=== PATIENT | male | born 1990 | race American Indian/Alaskan Native ===

== ENCOUNTER 2017-08-20 12:11 | Emergency (ER) | payer OTHER ==
[2017-08-20 12:18] VITALS: BP 120/73
[2017-08-20] MEDS ORDERED: MOTRIN PO ONE (12:20)
[2017-08-20] MEDS ORDERED: CLEOCIN ONE (12:21)
[2017-08-20] MEDS ORDERED: CLEOCIN IM ONE (12:24)
--- NOTE | 2017-08-20 12:28 | Emergency Department Report ---
<SHAWNA ELLINGTON - Last Filed: 08/20/17 12:24> ED ENT HPI - General Chief complaint: Dental/Oral Stated complaint: PAIN/ABCESS Time Seen by Provider: 08/20/17 12:19 Source: patient Mode of arrival: Ambulatory Limitations: No Limitations - History of Present Illness Initial comments: This is a 26-year-old male nontoxic, well nourished in appearance, no acute signs of distress presents to the ED with c/o of left lower toothache 1 week. Patient denies following up with a dentist. Patient stated that pain radiates from his job to his left side of head. Patient otherwise denies any head trauma. Patient describes toothache as aching level of 8 out of 10. Patient stated has slight facial swelling of left lower jaw. Patient denies any numbness, tingling, fever, chills, headache, stiff neck, abdominal pain, chest pain, shortness of breath. Patient denies any drug allergies or significant past medical history. MD complaint: tooth pain -: week(s) (1) Location: tooth # 1 - pain Severity: mild Severity scale (0 -10): 8 Quality: aching Consistency: constant Improves with: none Worsens with: none Associated Symptoms: gum swelling, toothache. denies: fever, cough, pain with swallowing, sore throat, tinnitus, hearing loss, discharge from ear, rhinorrhea - Related Data Previous Rx's Medication Instructions Recorded Last Taken Type Cyclobenzaprine [Flexeril 10mg] 10 mg PO Q8H PRN #21 tablet 11/22/13 Unknown Rx Ibuprofen [Motrin 800 MG tab] 800 mg PO TID PRN #21 tablet 02/17/14 Unknown Rx HYDROcodone/APAP 5-325 [[place] 1 each PO Q6HR PRN #16 tablet 03/19/14 Unknown Rx 5-325 mg TAB] Penicillin Vk [Veetids TAB] 500 mg PO QID #40 tablet 03/19/14 Unknown Rx Acetaminophen/Codeine [Tylenol 1 tab PO Q6H PRN #14 tab 08/20/17 Unknown Rx /Codeine # 3 tab] Chlorhexidine Mouthwash [Peridex] 15 ml MM BID #1 bottle 08/20/17 Unknown Rx Clindamycin [Clindamycin CAP] 300 mg PO Q8H #21 cap 08/20/17 Unknown Rx Ibuprofen [Motrin] 600 mg PO Q8H PRN #30 tablet 08/20/17 Unknown Rx Allergies Allergy/AdvReac Type Severity Reaction Status Date / Time No Known Allergies Allergy Verified 08/20/17 12:17 ED Dental HPI - General Chief complaint: Dental/Oral Stated complaint: PAIN/ABCESS Time Seen by Provider: 08/20/17 12:19 Source: patient Mode of arrival: Ambulatory Limitations: No Limitations - Related Data Previous Rx's Medication Instructions Recorded Last Taken Type Cyclobenzaprine [Flexeril 10mg] 10 mg PO Q8H PRN #21 tablet 11/22/13 Unknown Rx Ibuprofen [Motrin 800 MG tab] 800 mg PO TID PRN #21 tablet 02/17/14 Unknown Rx HYDROcodone/APAP 5-325 [[place] 1 each PO Q6HR PRN #16 tablet 03/19/14 Unknown Rx 5-325 mg TAB] Penicillin Vk [Veetids TAB] 500 mg PO QID #40 tablet 03/19/14 Unknown Rx Acetaminophen/Codeine [Tylenol 1 tab PO Q6H PRN #14 tab 08/20/17 Unknown Rx /Codeine # 3 tab] Chlorhexidine Mouthwash [Peridex] 15 ml MM BID #1 bottle 08/20/17 Unknown Rx Clindamycin [Clindamycin CAP] 300 mg PO Q8H #21 cap 08/20/17 Unknown Rx Ibuprofen [Motrin] 600 mg PO Q8H PRN #30 tablet 08/20/17 Unknown Rx Allergies Allergy/AdvReac Type Severity Reaction Status Date / Time No Known Allergies Allergy Verified 08/20/17 12:17 ED Review of Systems ROS: Stated complaint: PAIN/ABCESS Other details as noted in HPI Constitutional: denies: chills, fever Eyes: denies: eye pain, eye discharge, vision change ENT: dental pain. denies: ear pain, throat pain Respiratory: denies: cough, shortness of breath, wheezing Cardiovascular: denies: chest pain, palpitations Endocrine: no symptoms reported Gastrointestinal: denies: abdominal pain, nausea, diarrhea Genitourinary: denies: urgency, dysuria Musculoskeletal: denies: back pain, joint swelling, arthralgia Skin: denies: rash, lesions Neurological: denies: headache, weakness, paresthesias Psychiatric: denies: anxiety, depression Hematological/Lymphatic: denies: easy bleeding, easy bruising ED Past Medical Hx - Past Medical History Previous Medical History?: No - Surgical History Hx Appendectomy: Yes - Social History Smoking Status: Current Every Day Smoker Substance Use Type: None - Medications Home Medications: Home Medications Medication Instructions Recorded Confirmed Last Taken Type Cyclobenzaprine [Flexeril 10mg] 10 mg PO Q8H PRN #21 tablet 11/22/13 Unknown Rx Ibuprofen [Motrin 800 MG tab] 800 mg PO TID PRN #21 tablet 02/17/14 Unknown Rx HYDROcodone/APAP 5-325 [[place] 1 each PO Q6HR PRN #16 tablet 03/19/14 Unknown Rx 5-325 mg TAB] Penicillin Vk [Veetids TAB] 500 mg PO QID #40 tablet 03/19/14 Unknown Rx Acetaminophen/Codeine [Tylenol 1 tab PO Q6H PRN #14 tab 08/20/17 Unknown Rx /Codeine # 3 tab] Chlorhexidine Mouthwash [Peridex] 15 ml MM BID #1 bottle 08/20/17 Unknown Rx Clindamycin [Clindamycin CAP] 300 mg PO Q8H #21 cap 08/20/17 Unknown Rx Ibuprofen [Motrin] 600 mg PO Q8H PRN #30 tablet 08/20/17 Unknown Rx ED Physical Exam - General Limitations: No Limitations General appearance: alert, in no apparent distress - Head Head exam: Present: atraumatic, normocephalic - Eye Eye exam: Present: normal appearance Pupils: Present: normal accommodation - ENT ENT exam: Present: mucous membranes moist, TM's normal bilaterally, normal external ear exam - Expanded ENT Exam Expanded Ear exam: Present: normal external inspection Mouth exam: Present: normal external inspection, tongue normal. Absent: drooling, trismus, muffled voice, tongue elevation, laceration Teeth exam: Present: dental caries, fractured tooth #, dental tenderness #, gingival enlargement, other (Slight facial swelling with no induration or flutance noted.) Throat exam: Positive: normal inspection, other (Uvula midline. ). Negative: tonsillar erythema, tonsillomegaly, tonsillar exudate, R peritonsillar mass, L peritonsillar mass - Neck Neck exam: Present: normal inspection, full ROM. Absent: tenderness, meningismus, lymphadenopathy - Respiratory Respiratory exam: Present: normal lung sounds bilaterally. Absent: respiratory distress, wheezes, rales, rhonchi, stridor, chest wall tenderness, accessory muscle use, decreased breath sounds, prolonged expiratory - Cardiovascular Cardiovascular Exam: Present: regular rate, normal rhythm, normal heart sounds. Absent: bradycardia, tachycardia, irregular rhythm, systolic murmur, diastolic murmur, rubs, gallop - GI/Abdominal GI/Abdominal exam: Present: soft, normal bowel sounds - Rectal Rectal exam: Present: deferred - Extremities Exam Extremities exam: Present: normal inspection, full ROM, normal capillary refill - Back Exam Back exam: Present: normal inspection, full ROM - Neurological Exam Neurological exam: Present: alert, oriented X3, normal gait - Psychiatric Psychiatric exam: Present: normal affect, normal mood - Skin Skin exam: Present: warm, dry, intact, normal color. Absent: rash ED Course Vital Signs 08/20/17 08/20/17 12:14 12:30 Temperature 98.8 F Pulse Rate 84 Respiratory 18 18 Rate Blood Pressure 120/73 O2 Sat by Pulse 98 Oximetry - Reevaluation(s) Reevaluation #1: 08/20/17 12:26 Patient is speaking in full sentences with no signs of distress noted. ED Medical Decision Making - Medical Decision Making This is a 26-year-old male that presents with gingivitis and dental caries. Patient is stable and was examined by me. There is slight swelling to the left lower mandible. I used 18-gauge hypo-with 10 mL syringe and try to aspirate in the right gingival area to make sure this was an abscess and no prominent drainage has been noted. I did give patient clindamycin 600 mg IM in the ED and patient is discharged with clindamycin. He had strict instructions to follow-up with oral maxillary surgeon in 24 hours or if symptoms would worsen to return to emergency room as was possible. Patient is discharged with Tylenol with Codeine, Peridex and Clinda. Patient was instructed not to operate any machinery when taking Tylenol with Codeine due to drowsiness. At time of discharge, the patient does not seem toxic or ill in appearance. No acute signs of distress noted. Patient agrees to discharge treatment plan of care. No further questions noted by the patient. Critical care attestation.: If time is entered above; I have spent that time in minutes in the direct care of this critically ill patient, excluding procedure time. ED Disposition Disposition: DC-01 TO HOME OR SELFCARE Is pt being admited?: No Does the pt Need Aspirin: No Condition: Stable Instructions: Acetaminophen/Codeine (By mouth), Dental Caries (ED), Gingivitis (ED) Additional Instructions: Follow-up with a maxillary surgeon in 24 hours in 3-5 days or if symptoms worsen and continue return to emergency room as soon as possible. [facility] [employer] [facility] [employer] Address: [address], [place] [address] Hours: Friday (20 of August) 8AM1PM, 25PM Hours might differ 8AM1PM, 25PM Friday 7AM2PM Friday Closed Friday Closed Friday 8AM1PM, 25PM Friday 8AM1PM, 25PM Prescriptions: Acetaminophen/Codeine [Tylenol /Codeine # 3 tab] 1 tab PO Q6H PRN #14 tab PRN Reason: Pain , Severe (7-10) Chlorhexidine Mouthwash [Peridex] 15 ml MM BID #1 bottle Clindamycin [Clindamycin CAP] 300 mg PO Q8H #21 cap Ibuprofen [Motrin] 600 mg PO Q8H PRN #30 tablet PRN Reason: Pain Referrals: PRIMARY CARE, [Primary Care Provider] - 3-5 Days SILVESTRE LOUISE MD [Staff Physician] - 3-5 Days [facility] [Outside] - 3-5 Days Forms: Work/School Release Form(ED) <KRISTIE GUSMAN - Last Filed: 08/20/17 17:03> ED Medical Decision Making - Medical Decision Making I did not see this patient. I was available for consultation the entire time the patient was in the department. I have reviewed the DIRECTOR BIOLOGY/PAs note and agree with the plan.
== END 2017-08-20 12:59 | disposition home or self-care (01) ==
LOC: ED 12:11
DX: K02.9 Dental caries, unspecified (principal); K05.00 Acute gingivitis, plaque induced; F17.200 Nicotine dependence, unspecified, uncomplicated; Z90.49 Acquired absence of other specified parts of digestive tract
CPT/HCPCS: 96372; 99282

== ENCOUNTER 2019-01-24 08:40 | Emergency (ER) | payer OTHER ==
--- NOTE | 2019-01-24 08:52 | Event Note ---
ED Screening Note Date of service: 01/24/19 Time: 08:47 ED Screening Note: 28 y/o male comes in for testicle pain and swelling . No trauma or injury. Has some nausea no vomiting. This initial assessment/diagnostic orders/clinical plan/treatment(s) is/are subject to change based on patients health status, clinical progression and re- assessment by fellow clinical providers in the ED. Further treatment and workup at subsequent clinical providers discretion. Patient/guardian urged not to elope from the ED as their condition may be serious if not clinically assessed and managed. Initial orders include:
[2019-01-24] MEDS ORDERED: VANCOMYCIN/NS 1 GM/250 ML 1 GM/250 ML BAG IV ONE (09:59)
[2019-01-24] MEDS ORDERED: MORPHINE 4 MG/1 ML INJ IV ONE (10:04)
--- NOTE | 2019-01-24 10:07 | Emergency Department Report ---
HPI - General Chief Complaint: Urogenital-Male Time Seen by Provider: 01/24/19 08:47 - HPI HPI: 28-year-old male presents to the emergency department with a complaint of some pain and possible abscess to the scrotum that has developed over the past few days. The patient says that he was scratching his scrotum and thinks that he could've introduced and infection. He denies any dysuria, penile discharge, fever. No past medical history. He has not taken anything for her symptoms prior to arrival today. ED Past Medical Hx - Past Medical History Previous Medical History?: No - Surgical History Past Surgical History?: Yes Hx Appendectomy: Yes - Social History Smoking Status: Current Every Day Smoker Substance Use Type: Alcohol, Marijuana - Medications Home Medications: Home Medications Medication Instructions Recorded Confirmed Last Taken Type Cyclobenzaprine [Flexeril 10mg] 10 mg PO Q8H PRN #21 tablet 11/22/13 Unknown Rx Ibuprofen [Motrin 800 MG tab] 800 mg PO TID PRN #21 tablet 02/17/14 Unknown Rx HYDROcodone/APAP 5-325 [[place] 1 each PO Q6HR PRN #16 tablet 03/19/14 Unknown Rx 5-325 mg TAB] Penicillin Vk [Veetids TAB] 500 mg PO QID #40 tablet 03/19/14 Unknown Rx Acetaminophen/Codeine [Tylenol 1 tab PO Q6H PRN #14 tab 08/20/17 Unknown Rx /Codeine # 3 tab] Chlorhexidine Mouthwash [Peridex] 15 ml MM BID #1 bottle 08/20/17 Unknown Rx Amoxicillin [Amoxicillin TAB] 875 mg PO BID #10 tablet 02/16/18 Unknown Rx Ibuprofen [Motrin 600 MG tab] 600 mg PO Q8H PRN #30 tablet 02/16/18 Unknown Rx Clindamycin [Clindamycin CAP] 300 mg PO Q8H #30 cap 01/24/19 Unknown Rx HYDROcodone/APAP 5-325 [[place] 1 each PO Q6HR PRN #10 tablet 01/24/19 Unknown Rx 5/325] ED Review of Systems ROS: Stated complaint: DISCOMFORT IN GROIN Other details as noted in HPI Comment: All other systems reviewed and negative Constitutional: denies: chills, fever Gastrointestinal: denies: abdominal pain, vomiting Genitourinary: testicular pain. denies: dysuria, discharge Musculoskeletal: denies: back pain, arthralgia Skin: lesions. denies: rash Physical Exam - Physical Exam Vital Signs: Vital Signs 01/24/19 08:45 Temperature 98.9 F Pulse Rate 95 H Respiratory 20 Rate Blood Pressure 145/78 O2 Sat by Pulse 100 Oximetry Physical Exam: GENERAL: The patient is well-developed well-nourished. HENT: Normocephalic. Atraumatic. EYES: Extraocular motions are intact. NECK: Supple. Trachea is midline. CHEST/LUNGS: Clear to auscultation. There is no respiratory distress noted. HEART/CARDIOVASCULAR: Regular. There is no tachycardia. There is no murmur. ABDOMEN: Abdomen is soft, nontender. Patient has normal bowel sounds. There is no abdominal distention. SKIN: Patient has a midline inferior scrotal wall abscess that is tender to palpation, fluctuant, with some mild surrounding erythema. NEURO: The patient is awake, alert, and oriented. The patient is cooperative. Normal speech. MUSCULOSKELETAL: There is no tenderness or deformity. There is no limitation range of motion. There is no evidence of acute injury. : Patient has a midline inferior scrotal wall abscess that is tender to palpation, fluctuant, with some mild surrounding erythema. ED Course Vital Signs 01/24/19 08:45 Temperature 98.9 F Pulse Rate 95 H Respiratory 20 Rate Blood Pressure 145/78 O2 Sat by Pulse 100 Oximetry - Reevaluation(s) Reevaluation #1: The patient has a scrotal wall abscess, confirmed on ultrasound, that is about 2.6 cm that is adjacent to the left testicle. There is some mild erythema. The patient's vital signs are stable including being afebrile. He does have a leuko cytosis of 16,000. It is my recommendation to the patient to perform a incision and drainage. I explained the procedure in great detail with the patient is refusing to have this done. He understands that if an I&D is not performed that there is risk that this could worsen, have increased pain, increased abscess, development a systemic infection or sepsis, that this could ultimately affect his testicles and reproductive organs, or even lead to . However, the patient will be given an IV with IV fluid resuscitation, pain medication and IV antibiotics. The patient will sign out AGAINST MEDICAL ADVICE but he will be sent home with antibiotics and a referral for urology. He also understands that he can, and should, return to the emergency department with any worsening of his symptoms or with any acute distress. 01/24/19 11:13 ED Medical Decision Making - Lab Data Result diagrams: 01/24/19 10:42 01/24/19 10:42 - Radiology Data Radiology results: report reviewed Scrotal Ultrasound HISTORY: testicle pain and swelling. TECHNIQUE: Grayscale and color Doppler imaging performed. COMPARISON: None FINDINGS: Both testicles are normal in size with preserved blood flow. Right testicle measures 3.7 x 1.9 x 2.9 cm and the left testicle measures 3.4 x 2.3 x 2.2 cm. Punctate microcalcifications are present in both testicles. Each epididymis is normal in size. In the soft tissues of the scrotal wall adjacent to the left testicle, there is a complex mixed echogenicity structure measuring 2.6 cm in maximal dimension with surrounding hyperemia. IMPRESSION: 1. Complex cystic structure in the scrotal wall adjacent to the testicles worrisome for an abscess. 2. Microcalcifications within the testicles can be associated with increased cancer risk. Recommend annual self physical exam and consultation with urology as if needed. - Medical Decision Making This patient presents with the complaint of some pain and suspected infection to the scrotum over the past few days. On examination the patient does appear to have a scrotal wall abscess with some mild surrounding erythema. An ultrasound was done that shows a complex cystic structure in the scrotal wall that is 2.6 cm in its maximal dimension that is consistent with a scrotal wall abscess. The abscess does appear superficial, fluctuant, and I gave the patient my recommendation to perform an I&D. I went over the procedure in great detail but the patient is refusing to have the incision and drainage done. As previously stated, I spent a while speaking with the patient regarding my concerns for leaving the emergency department without doing the I and D. The patient may end up doing well and having resolution of his abscess and infection with just anti biotics and outpatient follow-up. However, there is also concern for worsening or spreading of this infection, sepsis, dysfunction of his genitals or reproductive organs, increased pain, or even . The patient is awake, alert, oriented and appears to have a normal decision making capacity. Since he understands the risks involved of not having the incision and drainage completed, he will be allowed to sign out AGAINST MEDICAL ADVICE. However, prior to leaving, the patient was given IV antibiotics and the patient was given prescriptions for oral antibiotics and a referral for urology. On top of all this, the patient also was instructed and understands that he should return immediately if he changes his mind about the incision and drainage, oriented any signs or symptoms of worsening infection, or with any acute distress. - Differential Diagnosis scrotal wall cellulitis, abscess, Aria's gangrene Critical Care Time: No Critical care attestation.: If time is entered above; I have spent that time in minutes in the direct care of this critically ill patient, excluding procedure time. ED Disposition Clinical Impression: Scrotal abscess Disposition: LEFT AGAINST MED ADVICE Is pt being admited?: No Condition: Stable Instructions: Abscess (ED) Additional Instructions: Please follow-up with a primary care physician in the next few days. Please follow-up with a urologist as soon as possible and I am giving you a referral for a local urologist, Dr. Noble. Take the antibiotics as prescribed. Return to the emergency department immediately if you change your mind about incision and drainage, with any worsening of your abscess including increased pain, increased size, increased surrounding redness, development of fever, or with any acute distress. You have been prescribed a medication that is sedating and therefore should not be taken prior to driving, working, and responsible for children and in no way should be mixed with alcohol of any quantity. Prescriptions: Clindamycin [Clindamycin CAP] 300 mg PO Q8H #30 cap HYDROcodone/APAP 5-325 [[place] 5/325] 1 each PO Q6HR PRN #10 tablet PRN Reason: Pain Referrals: PRIMARY CAREMD [Primary Care Provider] - EVETTE ROBBIE NOBLE MD [Staff Physician] - EVETTE Forms: AMA Form Time of Disposition: 11:50
[2019-01-24 10:26] LABS: Bilirubin,Urine NEG (Negative); Blood,Urine NEG (Negative); Color,Urine Yellow (Yellow); Mucus,Urine FEW /HPF; Protein,Urine <15 mg/dL mg/dL (Negative)
[2019-01-24] MEDS ORDERED: VANCOMYCIN 1,250 MG in SODIUM CHLORIDE 0.9% 250ML 250 ML IV ONE (11:00)
--- NOTE | 2019-01-24 11:01 | Ultrasound Report ---
Scrotal Ultrasound HISTORY: testicle pain and swelling. TECHNIQUE: Grayscale and color Doppler imaging performed. COMPARISON: None FINDINGS: Both testicles are normal in size with preserved blood flow. Right testicle measures 3.7 x 1.9 x 2.9 cm and the left testicle measures 3.4 x 2.3 x 2.2 cm. Punctate microcalcifications are pres ent in both testicles. Each epididymis is normal in size. In the soft tissues of the scrotal wall adjacent to the left testicle, there is a complex mixed echog enicity structure measuring 2.6 cm in maximal dimension with surrounding hyperemia. IMPRESSION: 1. Complex cystic structure in the scrotal wall adjacent to the testicles worrisome for an abscess. 2. Microcalcifications within the testicles can be associated with increased cancer risk. Recommend a nnual self physical exam and consultation with urology as if needed. Signer Name: Jj Lopez MD Signed: 01/24/2019 10:56 AM Workstation Name: [id number]
[2019-01-24 11:04] LABS: Basophils # (Auto) 0.1 K/mm3 (0.0-0.1); Basophils % (Auto) 0.3 % (0.0-1.8); Eosinophils # (Auto) 0.1 K/mm3 (0.0-0.4); Eosinophils % (Auto) 0.7 % (0.0-4.3); Hematocrit 39.6 % (35.5-45.6); Hemoglobin 13.1 gm/dl (11.8-15.2); Lymphocytes # (Auto) 1.4 K/mm3 (1.2-5.4); Lymphocytes % (Auto) 8.4 % (13.4-35.0); Mean Corpuscular HGB Conc 33 % (32-34); Mean Corpuscular Volume 88 fl (84-94); Monocytes # (Auto) 1.1 K/mm3 (0.0-0.8); Monocytes % (Auto) 6.8 % (0.0-7.3); Platelet Count 293 K/mm3 (140-440); Red Blood Count 4.51 M/mm3 (3.65-5.03); Red Cell Distribution Width 14.2 % (13.2-15.2)
[2019-01-24 11:14] LABS: BUN/Creatinine Ratio 14; Blood Urea Nitrogen 10 mg/dL (9-20); Calcium 9.3 mg/dL (8.4-10.2); Hemolysis Index 30
[2019-01-24 13:47] VITALS: BP 120/68
== END 2019-01-24 13:48 | disposition left against medical advice (07) ==
LOC: ED 08:40
DX: N49.2 Inflammatory disorders of scrotum (principal); F17.200 Nicotine dependence, unspecified, uncomplicated; F10.10 Alcohol abuse, uncomplicated; F12.10 Cannabis abuse, uncomplicated; Z79.899 Other long term (current) drug therapy; Z90.49 Acquired absence of other specified parts of digestive tract
CPT/HCPCS: 36415; 80048; 81001; 85025; 93975; 96365; 96366; 96375; 99284; J2270; J3370; J7050

== ENCOUNTER 2020-01-10 16:16 | Emergency (ER) | payer SELFPAY ==
--- NOTE | 2020-01-10 16:48 | Emergency Department Report ---
- General Chief Complaint: Wound/Laceration Stated Complaint: LT ARM SWOLLEN Time Seen by Provider: 01/10/20 16:42 Source: patient Mode of arrival: Ambulatory Limitations: No Limitations - History of Present Illness Initial Comments: This pleasant 29-year-old male presents the emergency department chief complaint of a draining wound to the posterior proximal left lower arm. Patient reports a bug bit him yesterday and he has been having some increased swelling look like a pimple initially then started to drain. He denies any associated fever, chills or night sweats, headache, dizziness, or vision, nausea, vomiting, diarrhea, chest pain, shortness of breath or any other associated symptoms. - Related Data Previous Rx's Medication Instructions Recorded Last Taken Type Cyclobenzaprine [Flexeril 10mg] 10 mg PO Q8H PRN #21 tablet 11/22/13 Unknown Rx Ibuprofen [Motrin 800 MG tab] 800 mg PO TID PRN #21 tablet 02/17/14 Unknown Rx HYDROcodone/APAP 5-325 [[place] 1 each PO Q6HR PRN #16 tablet 03/19/14 Unknown Rx 5-325 mg TAB] Penicillin Vk [Veetids TAB] 500 mg PO QID #40 tablet 03/19/14 Unknown Rx Acetaminophen/Codeine [Tylenol 1 tab PO Q6H PRN #14 tab 08/20/17 Unknown Rx /Codeine # 3 tab] Chlorhexidine Mouthwash [Peridex] 15 ml MM BID #1 bottle 08/20/17 Unknown Rx Amoxicillin [Amoxicillin TAB] 875 mg PO BID #10 tablet 02/16/18 Unknown Rx Ibuprofen [Motrin 600 MG tab] 600 mg PO Q8H PRN #30 tablet 02/16/18 Unknown Rx Clindamycin [Clindamycin CAP] 300 mg PO Q8H #30 cap 01/24/19 Unknown Rx HYDROcodone/APAP 5-325 [[place] 1 each PO Q6HR PRN #10 tablet 01/24/19 Unknown Rx 5/325] Naproxen [Naprosyn] 500 mg PO BID #20 tablet 01/10/20 Unknown Rx Sulfamethoxazole/Trimethoprim 1 each PO BID #20 tablet 01/10/20 Unknown Rx [Bactrim DS TAB] cephALEXin [Keflex] 500 mg PO Q6HR #40 capsule 01/10/20 Unknown Rx Allergies Allergy/AdvReac Type Severity Reaction Status Date / Time No Known Allergies Allergy Verified 08/20/17 12:17 ED Review of Systems ROS: Stated complaint: LT ARM SWOLLEN Other details as noted in HPI Comment: All other systems reviewed and negative Constitutional: denies: chills, fever Eyes: denies: eye pain, eye discharge, vision change ENT: denies: ear pain, throat pain Respiratory: denies: cough, shortness of breath, wheezing Cardiovascular: denies: chest pain, palpitations Endocrine: no symptoms reported Gastrointestinal: denies: abdominal pain, nausea, diarrhea Genitourinary: denies: urgency, dysuria Musculoskeletal: denies: back pain, joint swelling, arthralgia Skin: as per HPI, lesions. denies: rash Neurological: denies: headache, weakness, paresthesias Psychiatric: denies: anxiety, depression Hematological/Lymphatic: denies: easy bleeding, easy bruising ED Past Medical Hx - Past Medical History Previous Medical History?: No - Surgical History Past Surgical History?: Yes Hx Appendectomy: Yes - Social History Smoking Status: Unknown if ever smoked Substance Use Type: None - Medications Home Medications: Home Medications Medication Instructions Recorded Confirmed Last Taken Type Cyclobenzaprine [Flexeril 10mg] 10 mg PO Q8H PRN #21 tablet 11/22/13 Unknown Rx Ibuprofen [Motrin 800 MG tab] 800 mg PO TID PRN #21 tablet 02/17/14 Unknown Rx HYDROcodone/APAP 5-325 [[place] 1 each PO Q6HR PRN #16 tablet 03/19/14 Unknown Rx 5-325 mg TAB] Penicillin Vk [Veetids TAB] 500 mg PO QID #40 tablet 03/19/14 Unknown Rx Acetaminophen/Codeine [Tylenol 1 tab PO Q6H PRN #14 tab 08/20/17 Unknown Rx /Codeine # 3 tab] Chlorhexidine Mouthwash [Peridex] 15 ml MM BID #1 bottle 08/20/17 Unknown Rx Amoxicillin [Amoxicillin TAB] 875 mg PO BID #10 tablet 02/16/18 Unknown Rx Ibuprofen [Motrin 600 MG tab] 600 mg PO Q8H PRN #30 tablet 02/16/18 Unknown Rx Clindamycin [Clindamycin CAP] 300 mg PO Q8H #30 cap 01/24/19 Unknown Rx HYDROcodone/APAP 5-325 [[place] 1 each PO Q6HR PRN #10 tablet 01/24/19 Unknown Rx 5/325] Naproxen [Naprosyn] 500 mg PO BID #20 tablet 01/10/20 Unknown Rx Sulfamethoxazole/Trimethoprim 1 each PO BID #20 tablet 01/10/20 Unknown Rx [Bactrim DS TAB] cephALEXin [Keflex] 500 mg PO Q6HR #40 capsule 01/10/20 Unknown Rx ED Physical Exam - General Limitations: No Limitations General appearance: alert, in no apparent distress - Head Head exam: Present: atraumatic, normocephalic - Eye Eye exam: Present: normal appearance, PERRL, EOMI Pupils: Present: normal accommodation - ENT ENT exam: Present: normal exam, normal orophraynx, mucous membranes moist - Neck Neck exam: Present: normal inspection, full ROM. Absent: tenderness, meningism us - Respiratory Respiratory exam: Present: normal lung sounds bilaterally. Absent: respiratory distress, wheezes, rales, rhonchi, stridor - Cardiovascular Cardiovascular Exam: Present: regular rate, normal rhythm, normal heart sounds. Absent: systolic murmur, diastolic murmur, rubs, gallop - GI/Abdominal GI/Abdominal exam: Present: soft, normal bowel sounds. Absent: distended, tenderness, guarding, rebound, rigid - Rectal Rectal exam: Present: deferred - Extremities Exam Extremities exam: Present: normal inspection, full ROM, tenderness, other (1cm area of ulcreation to the left proximal, posterior lower arm. no induration or crepitus ) - Back Exam Back exam: Present: normal inspection - Neurological Exam Neurological exam: Present: alert, oriented X3 - Psychiatric Psychiatric exam: Present: normal affect, normal mood - Skin Skin exam: Present: warm, dry, intact, normal color. Absent: rash ED Medical Decision Making - Medical Decision Making Patient had a draining abscess to his left elbow area. Minimal surrounding erythema. Suspect possible insect bite versus furuncle. Patient will be treated with warm compress, anti-inflammatories and antibiotics and recommend outpatient primary care follow-up for wound recheck in 2 3 days. Patient instructed to return the emerge part with any change or worsening symptoms. Verbalized understand the diagnosis, treatment plan and follow-up instructions all his questions were answered. - Differential Diagnosis Abscess, insect bite, cellulitis Critical care attestation.: If time is entered above; I have spent that time in minutes in the direct care of this critically ill patient, excluding procedure time. ED Disposition Clinical Impression: Abscess Disposition: DC-01 TO HOME OR SELFCARE Is pt being admited?: No Condition: Stable Instructions: Skin Abscess Prescriptions: Sulfamethoxazole/Trimethoprim [Bactrim DS TAB] 1 each PO BID #20 tablet cephALEXin [Keflex] 500 mg PO Q6HR #40 capsule Naproxen [Naprosyn] 500 mg PO BID #20 tablet Referrals: ANJU AREVALO MD [Staff Physician] - 3-5 Days [facility] [Provider Group] - 3-5 Days Time of Disposition: 16:48
== END 2020-01-10 16:57 | disposition home or self-care (01) ==
LOC: ED 16:16
DX: L02.91 Cutaneous abscess, unspecified (principal); Z79.899 Other long term (current) drug therapy; Z90.49 Acquired absence of other specified parts of digestive tract
CPT/HCPCS: 99282

== ENCOUNTER → 2020-10-25 | Emergency (ER) | payer SELFPAY ==
[~2020-10-25] MED LIST: dexAMETHasone 4 MG/ML VIAL IM ONE
[2020-10-25 06:54] VITALS: BP 131/76
--- NOTE | 2020-10-25 07:46 | Emergency Department Report ---
Minor Respiratory - HPI Chief Complaint: Sore Throat Stated Complaint: SWOLLEN THROAT Time Seen by Provider: 10/25/20 07:43 ED Review of Systems ROS: Stated complaint: SWOLLEN THROAT Other details as noted in HPI ED Past Medical Hx - Surgical History Hx Appendectomy: Yes - Social History Smoking Status: Unknown if ever smoked Substance Use Type: None - Medications Home Medications: Home Medications Medication Instructions Recorded Confirmed Last Taken Type Cyclobenzaprine [Flexeril 10mg] 10 mg PO Q8H PRN #21 tablet 11/22/13 Unknown Rx Ibuprofen [Motrin 800 MG tab] 800 mg PO TID PRN #21 tablet 02/17/14 Unknown Rx HYDROcodone/APAP 5-325 [[place] 1 each PO Q6HR PRN #16 tablet 03/19/14 Unknown Rx 5-325 mg TAB] Penicillin Vk [Veetids TAB] 500 mg PO QID #40 tablet 03/19/14 Unknown Rx Acetaminophen/Codeine [Tylenol 1 tab PO Q6H PRN #14 tab 08/20/17 Unknown Rx /Codeine # 3 tab] Chlorhexidine Mouthwash [Peridex] 15 ml MM BID #1 bottle 08/20/17 Unknown Rx Amoxicillin [Amoxicillin TAB] 875 mg PO BID #10 tablet 02/16/18 Unknown Rx Ibuprofen [Motrin 600 MG tab] 600 mg PO Q8H PRN #30 tablet 02/16/18 Unknown Rx Clindamycin [Clindamycin CAP] 300 mg PO Q8H #30 cap 01/24/19 Unknown Rx HYDROcodone/APAP 5-325 [[place] 1 each PO Q6HR PRN #10 tablet 01/24/19 Unknown Rx 5/325] Naproxen [Naprosyn] 500 mg PO BID #20 tablet 01/10/20 Unknown Rx Sulfamethoxazole/Trimethoprim 1 each PO BID #20 tablet 01/10/20 Unknown Rx [Bactrim DS TAB] cephALEXin [Keflex] 500 mg PO Q6HR #40 capsule 01/10/20 Unknown Rx Amoxicillin [Trimox CAP] 500 mg PO BID #20 capsule 10/25/20 Unknown Rx Minor Respiratory Exam - Exam General: Vital signs noted. No distress. Alert and acting appropriately. Neurologic: Alert and oriented, no deficits. Musculoskeletal: Unremarkable. ED Course Vital Signs 10/25/20 06:22 Temperature 99.9 F H Pulse Rate 80 Respiratory 18 Rate Blood Pressure 131/76 O2 Sat by Pulse 96 Oximetry Critical care attestation.: If time is entered above; I have spent that time in minutes in the direct care of this critically ill patient, excluding procedure time. ED Disposition Clinical Impression: Pharyngitis Disposition: 01 HOME / SELF CARE / HOMELESS Is pt being admited?: No Does the pt Need Aspirin: No Condition: Stable Instructions: Pharyngitis Additional Instructions: motrin or tylenol for pain follow up with pcp in 48 hours referral below stay well hydrated meds as ordered today activity as tolerated Referrals: ANJU AREVALO MD [Staff Physician] - 3-5 Days Time of Disposition: 07:45
== END | disposition home or self-care (01) ==
LOC: ED 05:40
DX: J02.9 Acute pharyngitis, unspecified (principal); Z53.21 Procedure and treatment not carried out due to patient leaving prior to being seen by health care provider

== ENCOUNTER 2021-02-26 13:47 | Emergency (ER) | payer SELFPAY ==
--- NOTE | 2021-02-26 17:06 | Emergency Department Report ---
ED General Adult HPI - General Chief complaint: Eye Problems Stated complaint: INFECTED EYE Time Seen by Provider: 02/26/21 16:41 Source: patient Mode of arrival: Ambulatory Limitations: No Limitations - History of Present Illness Initial comments: Patient is 30 years old male with no significant past medical history. Patient presented to the ER complaining of bilateral eye discharge and matting in the morning. Patient stated that symptoms started 4 days ago. He stated that he took [id number] medicine but it did not help much. Patient also reported runny nose cough and congestion. Patient denied any blurry vision or visual changes. No fever or chills. Patient also complaining of itching around his private area on and off for the last few days. Patient stated that itching is worse when he at work in is moist. -: days(s) - Related Data Previous Rx's Medication Instructions Recorded Last Taken Type Cyclobenzaprine [Flexeril 10mg] 10 mg PO Q8H PRN #21 tablet 11/22/13 Unknown Rx Ibuprofen [Motrin 800 MG tab] 800 mg PO TID PRN #21 tablet 02/17/14 Unknown Rx HYDROcodone/APAP 5-325 [[place] 1 each PO Q6HR PRN #16 tablet 03/19/14 Unknown Rx 5-325 mg TAB] Penicillin Vk [Veetids TAB] 500 mg PO QID #40 tablet 03/19/14 Unknown Rx Acetaminophen/Codeine [Tylenol 1 tab PO Q6H PRN #14 tab 08/20/17 Unknown Rx /Codeine # 3 tab] Chlorhexidine Mouthwash [Peridex] 15 ml MM BID #1 bottle 08/20/17 Unknown Rx Amoxicillin [Amoxicillin TAB] 875 mg PO BID #10 tablet 02/16/18 Unknown Rx Ibuprofen [Motrin 600 MG tab] 600 mg PO Q8H PRN #30 tablet 02/16/18 Unknown Rx Clindamycin [Clindamycin CAP] 300 mg PO Q8H #30 cap 01/24/19 Unknown Rx HYDROcodone/APAP 5-325 [[place] 1 each PO Q6HR PRN #10 tablet 01/24/19 Unknown Rx 5/325] Naproxen [Naprosyn] 500 mg PO BID #20 tablet 01/10/20 Unknown Rx Sulfamethoxazole/Trimethoprim 1 each PO BID #20 tablet 01/10/20 Unknown Rx [Bactrim DS TAB] cephALEXin [Keflex] 500 mg PO Q6HR #40 capsule 01/10/20 Unknown Rx Amoxicillin [Trimox CAP] 500 mg PO BID #20 capsule 10/25/20 Unknown Rx Nystatin Cream [Mycostatin Cream] 1 applic TP BID 7 Days #2 tube 02/26/21 Unknown Rx Polymyxin B Sulf/Trimethoprim 1 drop OP QID 7 Days #1 bottle 02/26/21 Unknown Rx [Polytrim Eye Drops [id number]/0.1%] Allergies Allergy/AdvReac Type Severity Reaction Status Date / Time No Known Allergies Allergy Verified 10/25/20 06:54 ED Review of Systems ROS: Stated complaint: INFECTED EYE Other details as noted in HPI Comment: All other systems reviewed and negative Constitutional: denies: chills, fever Eyes: eye pain, eye discharge. denies: vision change ENT: congestion Respiratory: denies: cough, orthopnea, shortness of breath Cardiovascular: denies: chest pain, palpitations Neurological: denies: headache, weakness, numbness, paresthesias, confusion, abnormal gait ED Past Medical Hx - Past Medical History Previous Medical History?: No - Surgical History Past Surgical History?: Yes Hx Appendectomy: Yes - Social History Smoking Status: Unknown if ever smoked Substance Use Type: None - Medications Home Medications: Home Medications Medication Instructions Recorded Confirmed Last Taken Type Cyclobenzaprine [Flexeril 10mg] 10 mg PO Q8H PRN #21 tablet 11/22/13 Unknown Rx Ibuprofen [Motrin 800 MG tab] 800 mg PO TID PRN #21 tablet 02/17/14 Unknown Rx HYDROcodone/APAP 5-325 [[place] 1 each PO Q6HR PRN #16 tablet 03/19/14 Unknown Rx 5-325 mg TAB] Penicillin Vk [Veetids TAB] 500 mg PO QID #40 tablet 03/19/14 Unknown Rx Acetaminophen/Codeine [Tylenol 1 tab PO Q6H PRN #14 tab 08/20/17 Unknown Rx /Codeine # 3 tab] Chlorhexidine Mouthwash [Peridex] 15 ml MM BID #1 bottle 08/20/17 Unknown Rx Amoxicillin [Amoxicillin TAB] 875 mg PO BID #10 tablet 02/16/18 Unknown Rx Ibuprofen [Motrin 600 MG tab] 600 mg PO Q8H PRN #30 tablet 02/16/18 Unknown Rx Clindamycin [Clindamycin CAP] 300 mg PO Q8H #30 cap 01/24/19 Unknown Rx HYDROcodone/APAP 5-325 [[place] 1 each PO Q6HR PRN #10 tablet 01/24/19 Unknown Rx 5/325] Naproxen [Naprosyn] 500 mg PO BID #20 tablet 01/10/20 Unknown Rx Sulfamethoxazole/Trimethoprim 1 each PO BID #20 tablet 01/10/20 Unknown Rx [Bactrim DS TAB] cephALEXin [Keflex] 500 mg PO Q6HR #40 capsule 01/10/20 Unknown Rx Amoxicillin [Trimox CAP] 500 mg PO BID #20 capsule 10/25/20 Unknown Rx Nystatin Cream [Mycostatin Cream] 1 applic TP BID 7 Days #2 tube 02/26/21 Unknown Rx Polymyxin B Sulf/Trimethoprim 1 drop OP QID 7 Days #1 bottle 02/26/21 Unknown Rx [Polytrim Eye Drops [id number]/0.1%] ED Physical Exam - General Limitations: No Limitations General appearance: alert, in no apparent distress - Head Head exam: Present: atraumatic, normocephalic, normal inspection - Eye Eye exam: Present: PERRL, EOMI, conjunctival injection. Absent: scleral icterus, nystagmus, periorbital swelling, periorbital tenderness Pupils: Present: normal accommodation - ENT ENT exam: Present: normal exam, normal orophraynx, mucous membranes moist - Neck Neck exam: Present: normal inspection, full ROM. Absent: tenderness, meningismus - Respiratory Respiratory exam: Present: normal lung sounds bilaterally - Cardiovascular Cardiovascular Exam: Present: regular rate, normal rhythm, normal heart sounds - GI/Abdominal GI/Abdominal exam: Present: soft, normal bowel sounds. Absent: distended, tenderness, guarding, rebound, rigid, organomegaly, mass, bruit, pulsatile mass, hernia - Extremities Exam Extremities exam: Present: normal inspection, full ROM, normal capillary refill. Absent: tenderness, pedal edema, joint swelling, calf tenderness - Back Exam Back exam: Present: normal inspection, full ROM, CVA tenderness (R), CVA tenderness (L) - Neurological Exam Neurological exam: Present: alert, oriented X3, CN II-XII intact, normal gait, reflexes normal. Absent: motor sensory deficit - Psychiatric Psychiatric exam: Present: normal mood - Skin Skin exam: Present: warm, intact, normal color ED Course Vital Signs 02/26/21 02/26/21 15:52 18:47 Temperature 98.2 F 98.9 F Pulse Rate 65 68 Respiratory 16 16 Rate Blood Pressure 110/71 Blood Pressure 130/89 [Right] O2 Sat by Pulse 100 100 Oximetry ED Medical Decision Making - Medical Decision Making Patient is 30 years old male with no significant past medical history. Patient presented to the ER complaining of bilateral eye discharge and matting in the morning. Patient stated that symptoms started 4 days ago. He stated that he took [id number] medicine but it did not help much. Patient also reported runny nose cough and congestion. Patient denied any blurry vision or visual changes. No fever or chills. Patient also complaining of itching around his private area on and off for the last few days. Patient stated that itching is worse when he at work in is moist. Patient symptoms and exam is consistent for conjunctivitis. Patient given prescription for Polytrim. His other complaint is consistent with cutaneous candidiasis. Patient given prescription for nystatin cream and advised to follow-up with his primary doctor in the next 2 to 3 days and to return to the ER if he develop any new symptoms. Critical care attestation.: If time is entered above; I have spent that time in minutes in the direct care of this critically ill patient, excluding procedure time. ED Disposition Clinical Impression: Acute conjunctivitis of both eyes, Genital candidiasis in male Disposition: 01 HOME / SELF CARE / HOMELESS Is pt being admited?: No Condition: Stable Instructions: Bacterial Conjunctivitis, Adult, Skin Yeast Infection Prescriptions: Nystatin Cream [Mycostatin Cream] 1 applic TP BID 7 Days #2 tube Polymyxin B Sulf/Trimethoprim [Polytrim Eye Drops [id number]/0.1%] 1 drop OP QID 7 Days #1 bottle Referrals: [facility] [Provider Group] - 3-5 Days Forms: Work/School Release Form(ED)
[2021-02-26 18:48] VITALS: BP 130/89
== END 2021-02-26 18:48 | disposition home or self-care (01) ==
LOC: ED 13:47
DX: H10.33 Unspecified acute conjunctivitis, bilateral (principal); B37.9 Candidiasis, unspecified; Z98.890 Other specified postprocedural states; Z79.899 Other long term (current) drug therapy
CPT/HCPCS: 99282